=== PATIENT | male | born 1985 | race Caucasian/White ===

== ENCOUNTER 2017-03-07 23:54 | Emergency (ER) | payer OTHER ==
[~2017-03-07] VITALS: Ht 170.2 cm; Wt 63.5 kg
[2017-03-07 23:57] VITALS: BP 143/82
--- NOTE | 2017-03-08 00:37 | NUR ---
PT TAKEN TO BED 5
--- NOTE | 2017-03-08 00:40 | NUR ---
31Y M PRESENTED IN ER C/O OF LACERATION IN HIS NOSE BRIDGE AFTER HE FELL FROM [employer]ATE BOARD. BLEEDING NOTED AND C/O OF PAIN TO NOSE BRIDGE. PAIN IS 8/10 IN SCALE.
--- NOTE | 2017-03-08 00:44 | NUR ---
PT TAKEN TO CT
--- NOTE | 2017-03-08 01:09 | NUR ---
Dr. Tucker evaluating patient at bedside.
[2017-03-08] MEDS ORDERED: IBUPROFEN 800 MG TAB PO ONE (01:15)
[2017-03-08] MEDS ORDERED: LIDOCAINE 1% 500 MG/50 ML VIAL INJ ONE (01:25)
[2017-03-08] MEDS ORDERED: AMOXICILLIN 500 MG CAP PO ONE (01:45)
[2017-03-08] MEDS ORDERED: NEOMYCIN/POLYMYXIN/BACITRACIN 0.9 GM/1 PKT TP ONE (01:51)
[2017-03-08 01:59] VITALS: BP 130/78
--- NOTE | 2017-03-08 01:59 | NUR ---
Patient discharged with v/s stable. Written and verbal after care instructions given and explained. Patient alert, oriented and verbalized understanding of instructions. Ambulatory with steady gait. All questions addressed prior to discharge. ID band removed. Patient advised to follow up with PMD. Rx of AUGMENTIN AND MOTRIN given. Patient educated on indication of medication including possible reaction and side effects. Opportunity to ask questions provided and answered.
== END 2017-03-08 01:59 | disposition home or self-care (01) ==
LOC: MED 23:54
DX: S02.2XXB Fracture of nasal bones, initial encounter for open fracture (principal); R03.0 Elevated blood-pressure reading, without diagnosis of hypertension; V00.131A Fall from skateboard, initial encounter; Y93.51 Activity, roller skating (inline) and skateboarding; Y92.89 Other specified places as the place of occurrence of the external cause; Y99.8 Other external cause status
CPT/HCPCS: 12011; 70450; 70486; 90471; 90715; 99284; J2001